=== PATIENT | female | born 1950 | race Caucasian/White ===

== ENCOUNTER 2022-03-29 17:29 | Emergency (ER) | payer MEDICARE, SELFPAY ==
--- NOTE | ~2022-03-29 | CT_ITS ---
EXAMINATION: CT cervical spine wo con DATE: 03/29/2022 18:38 INDICATION: Head injury. TECHNIQUE: Computed tomography (CT) of the cervical spine was performed without intravenous contrast. Automated exposure control and iterative reconstruction technique were employed. The dose-length pro duct was 338.82 mGy-cm. COMPARISON: None FINDINGS: There is mild emphysema. There are nodules in the upper lobes measuring up to 10 mm on the left. There is mild kyphosis of cervical spine. There is 2 mm anterolisthesis of C3 on C4 and C4 on C 5. There is 7 degrees dextrocurvature of cervicothoracic spine. There is a 5 mm sclerotic lesion in C 4 vertebral body, most likely a hemangioma. Vertebral body heights are normal. There is mildly decrea sed disc height at C3-C4 and severely decreased disc height at C5-C6. The following disc levels are s pecifically discussed: C2-C3: There is no uncovertebral joint osteoarthritis. There is mild right and severe left facet join t osteoarthritis. There is mild left neural foraminal stenosis. There is no central canal stenosis. C3-C4: There is mild bilateral uncovertebral joint osteoarthritis. There is mild right and severe lef t facet joint osteoarthritis. There is mild left neural foraminal stenosis. There is mild central can al stenosis. C4-C5: There is mild bilateral uncovertebral joint osteoarthritis. There is mild right and severe lef t facet joint osteoarthritis. There is mild left neural foraminal stenosis. There is no central canal stenosis. C5-C6: There is moderate right and severe left uncovertebral joint osteoarthritis. There is moderate bilateral facet joint osteoarthritis. There is mild right and moderate left neural foraminal stenosis . There is mild central canal stenosis. C6-C7: There is mild bilateral uncovertebral joint osteoarthritis. There is mild bilateral facet join t osteoarthritis. There is mild left neural foraminal stenosis. There is mild central canal stenosis. C7-T1: There is no uncovertebral joint osteoarthritis. There is mild right and severe left facet join t osteoarthritis. There is mild left neural foraminal stenosis. There is no central canal stenosis. IMPRESSION: 1. No fracture. 2. Severe cervical spondylosis. 3. Nodules in the upper lobes measuring up to 10 mm on the left, which may be infection or malignancy . Noncontrast chest CT is recommended. 4. Mild emphysema. Reviewed, dictated and finalized at location A. CTOR AND PROFESSOR IMPRESSION: 1. No fracture. 2. Severe cervical spondylosis. 3. Nodules in the upper lobes measuring up to 10 mm on the left, which may be i nfection or malignancy. Noncontrast chest CT is recommended. 4. Mild emphysema.
--- NOTE | ~2022-03-29 | XR_ITS ---
EXAMINATION: XR shoulder RT min 2V DATE: 03/29/2022 22:35 INDICATION: Right shoulder injury. TECHNIQUE: 4 views of right shoulder were obtained. COMPARISON: None. FINDINGS: Bone alignment is normal. No fracture. There is mild osteoarthritis of glenohumeral joint a nd severe osteoarthritis of acromioclavicular joint. IMPRESSION: 1. Polyarticular osteoarthritis. Reviewed, dictated and finalized at location A. CTION MOLDER
--- NOTE | ~2022-03-29 | XR_ITS ---
EXAMINATION: XR thoracic spine 3V DATE: 03/29/2022 21:08 INDICATION: Back pain. TECHNIQUE: 3 views of thoracic spine were obtained. COMPARISON: None. FINDINGS: There is 26 degrees levoscoliosis of upper thoracic spine. There is 12 degrees dextroscolio sis of lower thoracic spine. There is mild chronic anterior wedging of multiple midthoracic vertebral bodies. There is mild to moderately decreased disc height at multiple levels, worst in mid thoracic spine. There is severely decreased disc height at T8-T9. IMPRESSION: 1. Severe thoracic spondylosis. 2. Scoliosis. Reviewed, dictated and finalized at location A. GER STORAGE
--- NOTE | ~2022-03-29 | XR_ITS ---
EXAMINATION: XR sacrum coccyx min 2V DATE: 03/29/2022 21:07 INDICATION: Sacral pain. Fall. TECHNIQUE: 3 views of the sacrum and coccyx were obtained. COMPARISON: None. FINDINGS: Bone alignment is normal. No acute fracture. There are healing/healed fractures of left sup erior and inferior pubic rami with callus formation. There is severe lumbar spondylosis. There is mil d osteoarthritis of the sacroiliac joints. There is mild right hip osteoarthritis and moderate left h ip osteoarthritis. IMPRESSION: 1. No acute fracture. Reviewed, dictated and finalized at location A. DUMPER IMPRESSION: 1. No acute fracture.
--- NOTE | ~2022-03-29 | CT_ITS ---
EXAMINATION: CT brain wo con DATE: 03/29/2022 18:35 INDICATION: Head injury. TECHNIQUE: Computed tomography (CT) of the head was performed without intravenous contrast. The mA wa s adjusted according to patient size. Iterative reconstruction technique was employed. The dose-lengt h product was 605.33 mGy-cm. COMPARISON: None FINDINGS: There are scattered areas of low attenuation in the cerebral white matter. There is no intr acranial hemorrhage, acute infarction, or abnormal intracranial mass lesion. The ventricles are adrienne l in size. The paranasal sinuses are clear. The mastoid air cells are normal. There are likely change s of ocular lens replacement surgeries. There are dystrophic calcifications in left ocular globe. IMPRESSION: 1. Mild nonspecific cerebral white matter disease, which likely represents chronic small vessel ische dee disease. Reviewed, dictated and finalized at location A. TED CIRCUIT BOARDS INSPECTOR IMPRESSION: 1. Mild nonspecific cerebral white matter disease, which likely represents log sawyer alpa small vessel ischemic disease.
--- NOTE | ~2022-03-29 | XR_ITS ---
EXAMINATION: XR lumbar spine 2-3V DATE: 03/29/2022 21:06 INDICATION: Low back pain. Fall. TECHNIQUE: 3 views of lumbar spine were obtained. COMPARISON: None. FINDINGS: There is 4 degrees dextrocurvature of lumbar spine. There is 3 mm anterolisthesis of L4 on L5. Vertebral body heights are normal. There is mildly decreased disc height at L3-L4 and severely de creased disc height at L4-L5 and L5-S1. There is multilevel facet joint osteoarthritis, severe in low er lumbar spine. IMPRESSION: 1. Severe lower lumbar spondylosis. Reviewed, dictated and finalized at location A. E CARPENTER HELPER
[2022-03-29 17:29] VITALS: BP 140/90; PULSE 85; RESP 18; TEMP 36.6; O2SAT 98
[2022-03-29 19:06] VITALS: BP 130/85; PULSE 95; RESP 18; O2SAT 95
--- NOTE | 2022-03-29 19:28 | PC.NURSE ---
Dr. Schroeder notified c-spine scan has come back negative. Asked if okay to remove c-collar. Dr. Schroeder states pt needs to be evaluated by provider before c-collar removal. Pt updated.
--- NOTE | 2022-03-29 19:42 | ED.FALL ---
HPI - Fall General Chief Complaint: Fall Stated Complaint: Fall, head injury Time Seen by Provider: 03/29/22 19:35 Source: patient and EMS Mode of arrival: EMS Limitations: no limitations History of Present Illness HPI Narrative: Patient is 71 years old white female [facility]. Patient reports a history of recurrent fall for a while. Was seen by many physicians with a lot of blood work-up, imaging including CAT scan and MRI without specific diagnosis. Last fall was 1 week ago. Patient scheduled to see a new neurologist in 2 days. Today patient tripped and fell backward hitting a cabinet with her head, no loss of consciousness when EMT arrived the patient was walking around the dining finn. Patient on anticoagulant medication, patient arrived with c-collar in place, patient has bruises all over her upper body. Related Data Allergies Allergy/AdvReac Type Severity Reaction Status Date / Time adhesive Allergy Unknown PEELS MY Verified 01/03/17 08:26 SKIN OFF Sulfa (Sulfonamide Allergy Unknown HIVES Verified 01/03/17 08:26 Antibiotics) HYDROCODONE BIT Allergy Unknown Unknown Uncoded 01/03/17 08:26 Review of Systems Review of Systems: All systems reviewed & are unremarkable except as noted in HPI and below Exam Narrative: General appearance: Well-developed, well-nourished Skin: Normal color, bruises on the right scapula, arms and legs. Head: Normocephalic, nontraumatic Eyes: Clear conjunctiva ENT: Oropharynx normal, ears normal, nose normal Neck: C-collar in place Chest and respiratory: Airway patent, no respiratory distress, no accessory muscle use Heart: Regular rate/rhythm Abdomen: Soft, nontender, no organomegaly, quiet bowel sounds Vascular: Normal peripheral pulses, normal capillary refill. Musculoskeletal: Slight limited range of motion of extremities otherwise no deformity, Neurologic: Alert and oriented ?3, SHIP PILOT is normal as tested, no gross motor deficit Course Vital Signs Vital signs: Vital Signs Temperature 36.6 C 03/29/22 17:29 Pulse Rate 85 03/29/22 17:29 Respiratory Rate 18 03/29/22 17:29 Blood Pressure 140/90 03/29/22 17:29 Pulse Oximetry 98 03/29/22 17:29 Oxygen Delivery Room Air 03/29/22 17:29 Temperature 36.6 C 03/29/22 17:29 Pulse Rate 92 03/29/22 22:49 Respiratory Rate 18 03/29/22 22:49 Blood Pressure 136/74 03/29/22 22:49 Pulse Oximetry 100 03/29/22 22:49 Oxygen Delivery Room Air 03/29/22 17:29 MDM - Fall MDM Narrative Medical decision making narrative: Patient presents with history of multiple falls, had another 1 today, no loss of consciousness, physical examination showed diffuse tenderness along the back, right shoulder, head and neck, CT head and cervical spine showed no acute abnormality X-ray of the thoracic spine, lumbar spine, coccyx and the right shoulder showed no acute abnormalities.. Patient been seen numerous of time by different physician for disequilibrium without a specific diagnosis And is scheduled to see a neurologist in 2 days. the pt was discharged to home.the pt,s condition upon discharge was fair,education was provided to the pt in reference to the final impression,discharge study results,treatment,prognosis and need for follow up . Imaging Data My impression: Impressions Head CT 03/29/22 18:37 IMPRESSION: 1. Mild nonspecific cerebral white matter disease, which likely represents chronic small vessel ischemic disease. Cervical Spine CT 03/29/22 18:49 IMPRESSION: 1. No fracture. 2. Severe cervical spondylosis. 3. Nodules in the upper lobes measuring up to 10 mm on the left, which may be infection or
--- NOTE | 2022-03-29 22:39 | PC.NURSE ---
[facility] does not provide transportation from ER. Called pt's son Shay and he is going to call back.
[2022-03-29 22:49] VITALS: BP 136/74; PULSE 92; RESP 18; O2SAT 100
== END 2022-03-29 23:08 ==
PROVIDERS: Emergency Provider Emergency Medicine; PCP Family Medicine
DX: S09.90XA Unspecified injury of head, initial encounter (principal); S49.91XA Unspecified injury of right shoulder and upper arm, initial encounter; S39.92XA Unspecified injury of lower back, initial encounter; S29.9XXA Unspecified injury of thorax, initial encounter; R90.82 White matter disease, unspecified; J43.9 Emphysema, unspecified; M19.011 Primary osteoarthritis, right shoulder; M47.812 Spondylosis without myelopathy or radiculopathy, cervical region; M47.814 Spondylosis without myelopathy or radiculopathy, thoracic region; M41.9 Scoliosis, unspecified; R91.8 Other nonspecific abnormal finding of lung field; W01.198A Fall on same level from slipping, tripping and stumbling with subsequent striking against other object, initial encounter; R29.6 Repeated falls
CPT/HCPCS: 70450; 72072; 72100; 72125; 72220; 73030; 99284

== ENCOUNTER 2022-04-08 07:16 | Emergency (ER) | payer MEDICARE, SELFPAY ==
[2022-04-08] VITALS (22 sets, daily range): BP systolic 130–153; BP diastolic 81–102; PULSE 85–112; RESP 11–22; TEMP 36.4–36.6; O2SAT 20–100
--- NOTE | ~2022-04-08 | CT_ITS ---
Non-contrast Head CT History: Headache COMPARISON: 03/29/2022 Technique: Axial non-contrast imaging of the brain was performed. Dose reduction technique was used on this scan by utilizing automated exposure control and iterative reconstruction technique. The dose -length product (DLP) was 529.67 mGy-cm. Findings: There is no evidence of intracranial hemorrhage, mass lesion, or acute infarct. Brain par enchyma appears normal. The ventricles and subarachnoid spaces are normal in size. The calvarium ap pears normal. The visualized paranasal sinuses and mastoid air cells are clear. Impression: No significant abnormality seen. Reviewed, dictated and finalized at location . OR MAKER Impression: No significant abnormality seen.
--- NOTE | ~2022-04-08 | US_ITS ---
Limited Abdominal Sonogram: Real-time sonographic imaging of the right upper quadrant was performed. Clinical History: Epigastric pain, cholelithiasis Findings: The liver appears normal with no evidence of mass lesion or bile duct dilatation. Main por mickie vein demonstrates normal direction of flow. The gallbladder is well distended, and and contains s mall amount of sludge. No definite gallstone or gallbladder wall thickening. The common bile duct tushar sures 6 mm. The visualized pancreas, aorta, and IVC are unremarkable. Impression: Small amount of gallbladder sludge. Reviewed, dictated and finalized at location M. CH ENGINE OPTIMIZATION STRATEGIST Impression: Small amount of gallbladder sludge.
--- NOTE | ~2022-04-08 | CT_ITS ---
EXAMINATION: CT abdomen pelvis w con DATE: 04/08/2022 09:01 INDICATION: Upper abdominal pain TECHNIQUE: Computed tomography (CT) of the abdomen and pelvis was performed with 100 cc Omnipaque 350 intravenous contrast. The dose-length product was 356.31 mGy-cm. Automated exposure control and iter ative reconstruction technique were employed. COMPARISON: None. FINDINGS: There is dependent atelectasis. Cardiomegaly. No significant pleural or pericardial effusio n. Fatty infiltration of the liver. The spleen, pancreas, adrenal glands are unremarkable. There are bilateral renal cysts, largest in the right kidney measuring 3 cm. There is left renal cortical thinn ing/scarring. There is gallbladder distention with gallstones. No biliary dilatation. No free air or free fluid. There is atherosclerosis without aneurysm. No lymphadenopathy. There is a healed/healing left inferior pubic ramus fracture. There is osteoarthritis of the hips. Moderate lumbar spondylosis with grade 1 degenerative spondylolisthesis at L4-5. IMPRESSION: 1. Gallbladder distention with gallstones. 2: Healed/healing left inferior pubic ramus fracture. Reviewed, dictated and finalized at location L. SPOTTER
--- NOTE | 2022-04-08 07:22 | ECG_ITS ---
Measurements Intervals [place] Rate: 93 P: DC: 0 QRS: 93 QRSD: 82 T: 0 QT: 278 QTc: 347 Interpretive Statements ATRIAL FIBRILLATION NONSPECIFIC ST & T-WAVE ABNORMALITY- ANT/INF LEADS BASELINE ARTIFACT- I, II, III, AVR, AVL, V1-V3 ABNORMAL ECG NO PREVIOUS ECG AVAILABLE FOR COMPARISON Electronically Signed On 04-08-2022 7:50:31 TRACK GREASER by Shaquille Amin D.O.
--- NOTE | 2022-04-08 07:27 | PC.NURSE ---
Patient states that she has Afib, but is too sick to remember her medical hx at the moment. Paperwork from [employer] did not have any medical history on the patient. 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
--- NOTE | 2022-04-08 07:48 | PC.NURSE ---
Patient was presenting normal sinus rhythm when initially put on the monitor. Now patient is presenting on with Afib at 95-100 beats per minute.
[2022-04-08 08:06] LABS: Alanine Aminotransferase 19 U/L (6-35); Albumin Level 4.2 g/dL (3.5-5.1); Alkaline Phosphatase 117 U/L (38-126); Anion Gap 7 mmol/L (8-16); Aspartate Amino Transferase 28 U/L (14-36); Basophils Absolute Auto 0.1 K/mm3 (0.0-0.1); Basophils Percent Auto 0.7 % (0.2-1.2); Bilirubin,Total 0.7 mg/dL (0.2-1.3); Blood Urea Nitrogen 12 mg/dL (7-17); Calcium 9.5 mg/dL (8.4-10.2); Carbon Dioxide 25 mmol/L (22-30); Chloride 107 mmol/L (98-107); Eosinophils Absolute Auto 0.2 K/mm3 (0-0.3); Eosinophils Percent Auto 1.6 % (0-4.4); Estimated CRCL calculation 55 ml/min; Estimated Glomerular Filt Rate > 60; Glucose 116 mg/dL (65-110); Hematocrit 42.9 % (37.0-47.0); Hemoglobin 13.8 g/dL (12.0-15.0); Immature Granulocyte Absolute 0.05 K/mm3 (0.00-0.031); Immature Granulocyte Percent A 0.5 % (0-0.5); Lipase 156 U/L (23-300); Lymphocytes Absolute Auto 0.64 K/mm3 (0.9-3.2); Mean Corpuscular HGB Conc 32.2 g/dl (32-36); Mean Corpuscular Hemoglobin 31.4 pg (26-34); Mean Corpuscular Volume 97.7 fl (80-100); Mean Platelet Volume 9.4 fl (7.4-10.4); Monocytes Absolute Auto 0.6 K/mm3 (0.1-0.6); Monocytes Percent Auto 6.5 % (2.6-8.5); Neutrophils Absolute Auto 7.7 K/mm3 (1.3-6.7); Neutrophils Percent Auto 83.7 % (45.5-73.1); Platelet Count Result 481 k/mm3 (150-375); Potassium 3.8 mmol/L (3.4-5.0); Red Blood Count 4.39 M/mm3 (4.2-5.4); Red Cell Distribution Width 13.2 % (11.5-14.5); Sodium 139 mmol/L (137-145); White Blood Count 9.2 K/mm3 (4.5-10.0)
[2022-04-08] MEDS: ONDANSETRON INJ 4 MG/2 ML VIAL IV PUSH (08:27)
[2022-04-08] MEDS: HYDROmorphone HCL INJ (*CRX) 1 MG/ML SYR 0.5 MG IV PUSH (08:29)
[2022-04-08] MEDS: PANTOPRAZOLE SODIUM IV 40 MG VIAL IV PUSH (08:32)
--- NOTE | 2022-04-08 08:36 | ED.GENADULT ---
HPI - General Adult General Chief complaint: Abdominal Pain Stated complaint: Abd pain since 2. from levels Time Seen by Provider: 04/08/22 07:23 History of Present Illness HPI narrative: 71-year-old female presenting to the emergency department for evaluation of epigastric pain, headache and nausea. Patient states symptoms started on Tuesday and have persisted. Patient denies any radiation of the pain to her neck or back. Patient reports decreased p.o. intake. Patient states she does have a prior history of an appendectomy but denies any prior history of gallbladder disease. Patient denies any chest pain or shortness of breath with this. Patient states she has not been running any fevers. Related Data Allergies Allergy/AdvReac Type Severity Reaction Status Date / Time adhesive Allergy Unknown PEELS MY Verified 01/03/17 08:26 SKIN OFF Sulfa (Sulfonamide Allergy Unknown HIVES Verified 01/03/17 08:26 Antibiotics) HYDROCODONE BIT Allergy Unknown Unknown Uncoded 01/03/17 08:26 Review of Systems Review of Systems: CONSTITUTIONAL: Denies fever, chills, or sweats. EYES: Denies visual changes, redness, or discharge. ENT: Denies rhinorrhea, congestion, sore throat, or otalgia. CARDIOVASCULAR: Denies chest pain, palpitations, or edema. RESPIRATORY: Denies cough or dyspnea. GASTROINTESTINAL: See HPI GENITOURINARY: Denies dysuria or hematuria. SKIN: Denies rash or itching. MUSCULOSKELETAL: Denies back pain, joint pain, or myalgia. NEUROLOGIC: Denies headache, numbness, or weakness. Exam Narrative: APPEARANCE: Well appearing, no pain, no distress, well-nourished. HEAD: normocephalic, atraumatic. EYES: PERRLA/EOMI, conjunctivae clear. NOSE: Normal no drainage NECK: Supple. No adenopathy, no masses. RESPIRATORY: Airway patent, respirations nonlabored. Clear to auscultation bilaterally, no rales, rhonchi, wheezing. CARDIOVASCULAR: Regular rate and rhythm without murmurs rubs or gallops. ABDOMINAL: Soft, nondistended, normal bowel sounds, epigastric tenderness to palpation MUSCULOSKELETAL: Moves all extremities. Strength/ROM intact, No edema, No calf tenderness. NEURO: Alert. Cranial nerves II through XII intact. Grossly intact SKIN: Warm, dry. Normal Color Course Course Emergency Course: 71-year-old female with nausea and epigastric pain. Patient was treated with IV fluids, IV Zofran and and IV pain medications. Patient also have a CT abdomen pelvis to help evaluate for pancreatitis, colitis, gastritis, esophagitis, diverticulitis. 10:[address] scan showed gallbladder distention with gallstones. Ultrasound was ordered to evaluate for acute cholecystitis. Patient was treated with Protonix and GI cocktail. Patient was still complaining of headache after Tylenol and IV fluids. CT brain was ordered due to the narrow/worsening headache. 11:[address] was negative. Patient did have a head injury a few weeks ago and had negative imaging at that point. No acute changes. Patient describes having some chills but denies any fever. Patient was afebrile here with no leukocytosis. Patient's electrolytes and transaminases were within normal limits. No elevation of lipase. Patient's UA showed no evidence of urinary tract infection. Reevaluation patient states she does feel improved. Patient denies any headache or epigastric pain at this time. Patient may be having postconcussive headache. Patient does describe chills but no evidence significant infection or need for antibiotics with identified. Patient may have an underlying viral illness. Patient states symptoms were improved with a GI cocktail. Patient will be advised to take omeprazole for 14 days, Maalox intermittently as needed and to have close follow-up with GI. All questions concerns were addressed and patient was comfortable to plan for discharge and close follow-up. Vital Signs Vital signs: Vital Signs Temperature 97.6 F 04/08/22 07:18 Pulse Rate 10
--- NOTE | 2022-04-08 08:57 | PC.NURSE ---
Patient received medication and began dropping down to upper 80s for SPO2. Notified Dr. Lin and put patient on nasal cannula at 2L/min.
--- NOTE | 2022-04-08 09:21 | PC.NURSE ---
Nurse and tech assisted patient to wheelchair to go to bathroom. Patient was very shaky, but maintained balance with minimal assistance.
--- NOTE | 2022-04-08 09:34 | PC.NURSE ---
Patient stated that medication took most of her pain away, but now her pain is coming back specifically her headache. Notified Dr. Lin.
[2022-04-08 09:49] LABS: Appearance Urine Clear (Clear); Bacteria Urine None Seen /hpf; Bilirubin Urine Negative (Negative); Color Urine Yellow (Yellow); Glucose Urine UA Negative (Negative); Ketones Urine Trace mg/dL (Negative); Leukocyte Esterase Ur Negative LEU/UL (Negative); Nitrate Urine Negative (Negative); Non Pathogenic Casts 0-2; Protein Urine Trace mg/dL (Negative); Squamous Epithelial Cell Urine None seen /hpf (Few); Urobilinogen Urine 0.2 mg/dL (<2.0); WBC Urine 0-5 /hpf; pH Urine 5.5 (5.0-9.0)
[2022-04-08 09:57] LABS: Specific Grav Ur 1.067 (1.001-1.035)
[2022-04-08 09:58] LABS: Add Urine Microscopic? YES
[2022-04-08] MEDS: BELLADONNA ALK/PHENOB ELIX 10 ML, MAG HYDROX/ALUMINUM HYD/SIMETH 30 ML, LIDOCAINE HCL 2... PO (10:30)
--- NOTE | 2022-04-08 11:56 | PC.NURSE ---
Called [facility] for a shuttle and they will send someone in 15-20 minutes to pickup the patient.
== END 2022-04-08 12:17 | disposition home or self-care (01) ==
PROVIDERS: Emergency Provider Emergency Medicine; PCP Family Medicine
DX: R51.9 Headache, unspecified (principal); R10.13 Epigastric pain; K80.20 Calculus of gallbladder without cholecystitis without obstruction; I48.91 Unspecified atrial fibrillation; R94.31 Abnormal electrocardiogram [ECG] [EKG]
CPT/HCPCS: 36415; 70450; 74177; 76705; 80053; 81001; 83690; 85025; 93005; 96365; 96375; 99284; A9270; C9113; J0131; J1170; J2405; Q9967

== ENCOUNTER 2022-05-04 09:10 | Outpatient (CLI) | payer MEDICARE, SELFPAY ==
--- NOTE | ~2022-05-04 | NM_ITS ---
EXAMINATION: NM hepatobiliary wo pharm DATE: 05/04/2022 11:38 INDICATION: Epigastric abdominal pain. Nausea. COMPARISON: CT abdomen and pelvis 04/08/2022 TECHNIQUE: 5.1 mCi Tc-99m mebrofenin (Choletec) was administered intravenously. Scintigraphic images of the abdomen were obtained for one hour. Then, the patient drank 8 oz Ensure, and imaging was cont inued for 60 minutes. FINDINGS: There is normal clearance of radiotracer from the blood pool. There is homogeneous tracer u ptake by the liver. Activity progresses to the bowel and gallbladder. Gallbladder ejection fraction (GBEF) was 98%. Note that with this technique, normal GBEF >= 33%. IMPRESSION: 1. Normal hepatobiliary scintigraphy. Reviewed, dictated and finalized at location A.
== END 2022-05-04 09:11 | disposition home or self-care (01) ==
PROVIDERS: PCP Family Medicine; Visit Provider Nurse Practitioner Family
DX: R10.13 Epigastric pain (principal)
CPT/HCPCS: 78226; A9537

== ENCOUNTER 2022-05-27 00:41 | Day surgery (SDC) | payer MEDICARE, SELFPAY ==
[2022-05-19 13:58] VITALS: BMI 22.6
--- NOTE | 2022-05-26 16:39 | PM.HPGS ---
History of Present Illness History of Present Illness Consent: Risks, benefits, and alternatives have been discussed and questions answered. Patient agrees to proceed with procedure. Chief complaint: epigastric pain, nausea Narrative: Ladi Hammonds is a 71 year old female who's symptoms started in March after she moved in to [place].? epigastric pain is constant in nature with no radiation.? She reports associated nausea but no vomiting. ? Epigastric pain does tend to be worse after eating fried or fatty foods. Gallbladder distention with gallstones was noted on CT scan in ER but no biliary dilation or elevated LFTs. Follow-up abdominal ultrasound revealed a small amount of gallbladder sludge but no definite gallstones or gallbladder wall thickening.? She denies any right upper quadrant pain or pain radiating to her back of shoulder blades. ? she was discharged from the ER with instructions to take Mylanta and Imodium (?). She denies any improvement with the mylanta and since starting Imodium she reports constipation.? She denies any previous diarrhea before starting Imodium. Since moving in to [place] she has noticed she has difficulty swallowing or eating. ? States she will have to swallow several times before going down.? Review of Systems Review of Systems: All systems reviewed & are unremarkable except as noted in HPI and below PMFSH Past Medical History Medical History Afib Anxiety CAD (coronary artery disease) CHF (congestive heart failure) Epigastric pain Heart attack Hernia High blood pressure Nausea Osteoarthritis Thyroid activity decreased Surgical History Surgical History H/O: hysterectomy Hx of CABG Social History Social History Smoking packs per day: 1 Smoking cigarettes per day: 20.0 Years smoked: 40 Smoking pack-years: 40.00 Smoking status: Current every day smoker Tobacco type: cigarettes and e-cigarettes/vaping Additional smoking assessment comments: QUIT SMOKING 2018 AND STARTED VAPING # Alcohol intake: current Substance use: never Substance use type: does not use Living arrangements: assisted living Additional living arrangements comments: [facility] [place], [place] Spiritual care concerns: No Meds Home Medications and Allergies Home Medications Medication Instructions Recorded Confirmed Type amiodarone 200 mg tablet 200 mg PO DAILY 04/22/22 05/19/22 History furosemide 40 mg tablet 40 mg PO QAM PRN Edema 04/22/22 05/19/22 History lamotrigine 100 mg tablet 100 mg PO DAILY 04/22/22 05/19/22 History levothyroxine 100 mcg tablet 100 mcg PO DAILY 04/22/22 05/19/22 History (Levo-T) metoprolol succinate 50 mg 50 mg PO DAILY 04/22/22 05/19/22 History tablet,extended release 24 hr multivitamin 1 tablet PO DAILY 04/22/22 05/19/22 History oxycodone-acetaminophen 5 mg-325 1 tablet PO Q6H PRN Pain 04/22/22 05/19/22 History mg tablet potassium chloride 10 mEq 10 meq PO DAILY 04/22/22 05/19/22 History capsule,extended release pregabalin 200 mg capsule 200 mg PO BID 04/22/22 05/19/22 History risperidone 0.5 mg tablet 0.5 mg PO DAILY 04/22/22 05/19/22 History rivaroxaban 20 mg tablet (Xarelto) 20 mg PO DAILY 04/22/22 05/19/22 History simvastatin 20 mg tablet 20 mg PO DAILY 04/22/22 05/19/22 History trazodone 50 mg tablet 50 mg PO QHS 04/22/22 05/19/22 History Vitamin D3 10,000 unit PO DAILY 05/19/22 05/19/22 History aspirin 81 mg tablet,delayed 81 mg PO DAILY 05/19/22 05/19/22 History release (Adult Low Dose Aspirin) calcium 1,200 mg PO BID 05/19/22 05/19/22 History ondansetron 4 mg disintegrating See Rx Instructions .Route 05/19/22 05/19/22 History tablet .COMPLEX PRN Nausea And Vomiting pantoprazole 40 mg tablet,delayed 40 mg PO QAM PRN Acid Reflux 05/19/22 05/19/22 History release venlafaxine 1
[2022-05-27 12:37] VITALS: BP 146/96; PULSE 83; RESP 18; TEMP 36.2; O2SAT 97
[2022-05-27] MEDS: LACTATED RINGERS 1,000 ML 150 ML IV CONT (12:53)
--- NOTE | 2022-05-27 12:57 | WPDANESEPPF ---
Anes - Initial Pre Proc Eval Procedure: Operation Date: 05/27/22 14:00 Proposed Procedures p Esophagogastroduodenoscopy - Yuri Wynn MD Date/Time: 05/27/22 12:57 Surgeon: Yuri Wynn MD Pre Op Diagnosis: epigastric pain, nausea Patient Data Age: 71 Gender: F Height: 1.7 m Weight: 70.9 kg Last Vital Signs Temp 97.1 F L 05/27/22 12:37 Pulse 83 05/27/22 12:37 Resp 18 05/27/22 12:37 BP 146/96 H 05/27/22 12:37 Pulse Ox 97 05/27/22 12:37 O2 Del Method Room Air 05/27/22 12:37 Allergies Allergy/AdvReac Type Severity Reaction Status Date / Time adhesive Allergy Intermediate PEELS MY Verified 05/27/22 12:33 SKIN OFF Home Medications Medication Instructions Recorded Confirmed Type amiodarone 200 mg tablet 200 mg PO DAILY 04/22/22 05/19/22 History furosemide 40 mg tablet 40 mg PO QAM PRN Edema 04/22/22 05/19/22 History lamotrigine 100 mg tablet 100 mg PO DAILY 04/22/22 05/19/22 History levothyroxine 100 mcg tablet 100 mcg PO DAILY 04/22/22 05/19/22 History (Levo-T) metoprolol succinate 50 mg 50 mg PO DAILY 04/22/22 05/19/22 History tablet,extended release 24 hr multivitamin 1 tablet PO DAILY 04/22/22 05/19/22 History oxycodone-acetaminophen 5 mg-325 1 tablet PO Q6H PRN Pain 04/22/22 05/19/22 History mg tablet potassium chloride 10 mEq 10 meq PO DAILY 04/22/22 05/19/22 History capsule,extended release pregabalin 200 mg capsule 200 mg PO BID 04/22/22 05/19/22 History risperidone 0.5 mg tablet 0.5 mg PO DAILY 04/22/22 05/19/22 History rivaroxaban 20 mg tablet (Xarelto) 20 mg PO DAILY 04/22/22 05/19/22 History simvastatin 20 mg tablet 20 mg PO DAILY 04/22/22 05/19/22 History trazodone 50 mg tablet 50 mg PO QHS 04/22/22 05/19/22 History Vitamin D3 10,000 unit PO DAILY 05/19/22 05/19/22 History aspirin 81 mg tablet,delayed 81 mg PO DAILY 05/19/22 05/19/22 History release (Adult Low Dose Aspirin) calcium 1,200 mg PO BID 05/19/22 05/19/22 History ondansetron 4 mg disintegrating See Rx Instructions .Route 05/19/22 05/19/22 History tablet .COMPLEX PRN Nausea And Vomiting pantoprazole 40 mg tablet,delayed 40 mg PO QAM PRN Acid Reflux 05/19/22 05/19/22 History release venlafaxine 150 mg 150 mg PO DAILY 05/19/22 05/19/22 History capsule,extended release 24 hr Patient hx anesthesia problems: none Family hx anesthesia problems: none Results Review: All pre-operative results and documents have been reviewed as part of the pre-operative evaluation. [facility] Past Medical History Medical History (Updated 04/22/22 @ 16:56 by ELENA LeeN-C) Afib Anxiety CAD (coronary artery disease) CHF (congestive heart failure) Epigastric pain Heart attack Hernia High blood pressure Nausea Osteoarthritis Thyroid activity decreased Surgical History Surgical History (Updated 04/22/22 @ 14:20 by James Rizvi) H/O: hysterectomy Hx of CABG Social History Social History Smoking packs per day: 1 Smoking cigarettes per day: 20.0 Years smoked: 40 Smoking pack-years: 40.00 Smoking status: Current every day smoker Tobacco type: cigarettes and e-cigarettes/vaping Additional smoking assessment comments: QUIT SMOKING 2017 AND STARTED VAPING # Alcohol intake: current Substance use: never Substance use type: does not use Living arrangements: assisted living Additional living arrangements comments: [facility] [place], [place] Spiritual care concerns: No Anes - Eval Final PreProcedure Day of Procedure 05/27/22 12:57 Patient weight: normal Heart: irregular rhythm Lungs: clear to auscultation Airway: Mallampati scale class II Neurological: alert and oriented Last oral intake: >/= 8 hours ASA classification: III Emergent: no Anesthetic plan: proceed Anesthesia type and monitoring: general GIVS and standard monitoring Results Review: All pre-operative results and documents have bee
[2022-05-27 14:24] VITALS: BP 126/82; PULSE 83; RESP 17; O2SAT 97
[2022-05-27 14:34] VITALS: BP 118/73; PULSE 76; RESP 12; O2SAT 96
[2022-05-27 14:44] VITALS: BP 126/86; PULSE 69; RESP 12; O2SAT 95
== END 2022-05-27 14:57 | disposition home or self-care (01) ==
PROVIDERS: PCP Family Medicine; Visit Provider Internal Medicine Gastroenterology
PROC: 0DJ08ZZ Inspection of Upper Intestinal Tract, Via Natural or Artificial Opening Endoscopic (ICD-10-PCS; CPT 43235; principal; 2022-05-27 14:00)
DX: K29.70 Gastritis, unspecified, without bleeding (principal); I48.91 Unspecified atrial fibrillation; I25.10 Atherosclerotic heart disease of native coronary artery without angina pectoris; I11.0 Hypertensive heart disease with heart failure; I50.9 Heart failure, unspecified; I25.2 Old myocardial infarction; F41.9 Anxiety disorder, unspecified; E07.9 Disorder of thyroid, unspecified; Z79.01 Long term (current) use of anticoagulants; Z79.82 Long term (current) use of aspirin; Z95.1 Presence of aortocoronary bypass graft; F17.290 Nicotine dependence, other tobacco product, uncomplicated
CPT/HCPCS: 43239; 88305; J2704; J7120

== ENCOUNTER 2022-06-01 13:24 | Outpatient (CLI) | payer MEDICARE, SELFPAY ==
--- NOTE | ~2022-06-01 | CT_ITS ---
EXAMINATION:CT diagnostic chest w con DATE: 06/01/2022 14:14 INDICATION: Lung nodule. TECHNIQUE: Computed tomography (CT) of the chest was performed with 75 mL Omnipaque 350 intravenous c ontrast. Automated exposure control and iterative reconstruction technique were employed. The dose-le ngth product (DLP) was 157.78 mGy-cm. COMPARISON: CT abdomen and pelvis 04/08/2022, CT cervical spine 03/29/2022 FINDINGS: There is mild scarring at the lung apices. There is mild dependent atelectasis bilaterally. There is a 10 mm nodule in left upper lobe. No pleural effusion. Cardiomegaly is noted. There are co ronary artery calcifications. No pericardial effusion. There are cysts in right kidney measuring up t o 2.6 cm . There is cortical thinning of the kidneys. Median sternotomy wires are noted. There is mil d chronic anterior wedging of multiple thoracic vertebral bodies. There is thoracic levoscoliosis and severe spondylosis. There is severe cervical spondylosis. There is a benign bone island in T4 verteb ral body. IMPRESSION: 1. 10 mm pulmonary nodule, which may be infection or malignancy, stable from 03/29/2022. Consider PET/ CT or 3-6 month noncontrast low-dose chest CT. Reviewed, dictated and finalized at location A. IMPRESSION: 1. 10 mm pulmonary nodule, which may be infection or malignancy, stable from . Consider PET/CT or 3-6 month noncontrast low-dose chest CT.
[2022-06-01 13:51] LABS: Estimated Glomerular Filt Rate 40
== END 2022-06-01 13:25 | disposition home or self-care (01) ==
PROVIDERS: PCP Family Medicine; Visit Provider Internal Medicine Pulmonary Disease
DX: R91.1 Solitary pulmonary nodule (principal)
CPT/HCPCS: 71260; Q9967

== ENCOUNTER 2022-06-11 10:30 | Outpatient (CLI) | payer MEDICARE, SELFPAY ==
[2022-06-11 11:21] LABS: Anion Gap 5 mmol/L (8-16); Blood Urea Nitrogen 18 mg/dL (7-17); Carbon Dioxide 27 mmol/L (22-30); Chloride 107 mmol/L (98-107); Estimated Glomerular Filt Rate 55; Glucose 91 mg/dL (65-110); Potassium 4.2 mmol/L (3.4-5.0); Sodium 139 mmol/L (137-145)
[2022-06-11 11:27] LABS: Alanine Aminotransferase 25 U/L (6-35); Albumin Level 4.4 g/dL (3.5-5.1); Alkaline Phosphatase 80 U/L (38-126); Amylase 74 U/L (30-110); Aspartate Amino Transferase 30 U/L (14-36); Bilirubin,Total 0.6 mg/dL (0.2-1.3); Lipase 210 U/L (23-300)
== END 2022-06-11 10:31 | disposition home or self-care (01) ==
LOC: ANHSURGERY 10:38
PROVIDERS: Anesthesiology; PCP Nurse Practitioner Family; Visit Provider Surgery
DX: K80.10 Calculus of gallbladder with chronic cholecystitis without obstruction (principal); Z79.899 Other long term (current) drug therapy; Z01.818 Encounter for other preprocedural examination
CPT/HCPCS: 36415; 80048; 80076; 82150; 83690; 86850; 86900; 86901

== ENCOUNTER 2022-06-17 02:04 | Day surgery (SDC) | payer MEDICARE, SELFPAY ==
[2022-06-10 12:36] VITALS: BMI 24.3
--- NOTE | 2022-06-10 12:44 | PC.NURSE ---
PRE-OP INSTRUCTIONS, PLEASE READ CAREFULLY Report to the Outpatient Waiting Room, entrance under the green pavilion located off [facility], at time _1000_ on date _06/17/22_. Planned Procedure Time: _1200_. Time changes happen often and if your time is changed the preop area will call you the afternoon before. - You and your visitor will be asked to self-screen and do not enter if you have any COVID symptoms. - A mask is optional within the hospital at this time. Patients may have clear liquids (water, carbonated beverages, clear teas, apple juice) until 3 hours prior to surgery (0900 AM) with a maximum of 20 ounces. - No food from midnight until time of surgery Take the following medications with a SIP of water the morning of surgery: _AMIODARONE, LAMOTRIGINE, LEVOTHYROXINE, METOPROLOL, PREGABALIN, VENLAFAXINE, PAIN PILL IF NEEDED_ DO NOT STOP ANY OF YOUR OTHER PRESCRIPTION MEDICATIONS PRIOR TO SURGERY ?EXCEPT THE FOLLOWING Medications to discontinue per DR. YUAN - _RIVAROXABAN 2 DAYS PRIOR TO SURGERY, Date to take last dose 06/14/10_ Medications to discontinue per ANESTHESIA - _MULTIVITAMIN 3 DAYS PRIOR TO SURGERY, Date to take last dose 06/13/10_ Please no make-up, nail azerbaijani, hairspray, perfume, deodorant, or body powder the day of surgery. No jewelry (including any body piercings) or valuables the day of surgery, leave them at home. Please take a shower or bath the night before, or the morning of, surgery with an antibacterial soap. Wear comfortable, loose fitting clothing. - Jewelry must be removed prior to entering the operating room. Rings and piercings that are not removed may be cut off. - The hospital will not accept responsibility for valuables. - Please leave all valuables, including medications, at home the day of surgery. If you are going home after surgery, a licensed commercial truck driver must drive you home. - NO public transportation without another adult if you receive anesthesia. - We recommend that an adult stay with you for 24 hours following discharge. - We also recommend that you do not drive, make important decision, drink alcoholic beverages, or take any drugs that were not prescribed by your health care provider for at least 24 hours after your discharge time. Follow any additional instructions given to you from your surgeon. If you or anyone in your household have experienced Covid symptoms in the past week, please notify your surgeon or the nurse liaison at the phone number below for possible testing. Telephone instructions given to _PATIENT_and asked if any additional questions and then verbalized understanding. Patient advised to call surgeon office or pre surgery nurse liaison [phone] if any additional questions.
[2022-06-17] VITALS (12 sets, daily range): BP systolic 125–170; BP diastolic 84–112; PULSE 68–87; RESP 13–16; TEMP 36.7–36.8; O2SAT 90–100
--- NOTE | 2022-06-17 10:25 | WPDHPUPDATE1 ---
History and Physical Update Update Date/Time: 06/17/22 10:25 History and Physical has been reviewed, including an updated exam of the patient. There are NO changes in the patient's condition. Risks, benefits, and alternatives have been discussed and questions answered. Patient agrees to proceed with procedure.
[2022-06-17] MEDS: LACTATED RINGERS 1,000 ML 30 ML IV CONT (10:45)
[2022-06-17] MEDS: ACETAMINOPHEN 500 MG TABLET 1000 MG PO (11:00)
[2022-06-17] MEDS: KETOROLAC 15 MG/ML VIAL (*BKC) IV PUSH (11:00)
--- NOTE | 2022-06-17 11:22 | WPDANESEPPF ---
Anes - Initial Pre Proc Eval Procedure: Operation Date: 06/17/22 12:00 Proposed Procedures p Laparoscopic Cholecystectomy - William Marrero MD Date/Time: 06/17/22 11:22 Surgeon: William Marrero MD Pre Op Diagnosis: chronic cholecystitis with stones Patient Data Age: 71 Gender: F Height: 1.7 m Weight: 70.5 kg Allergies Allergy/AdvReac Type Severity Reaction Status Date / Time adhesive Allergy Intermediate PEELS MY Verified 06/10/22 12:34 SKIN OFF Home Medications Medication Instructions Recorded Confirmed Type amiodarone 200 mg tablet 200 mg PO DAILY 04/22/22 06/10/22 History furosemide 40 mg tablet 40 mg PO QAM PRN Edema 04/22/22 06/10/22 History lamotrigine 100 mg tablet 100 mg PO DAILY 04/22/22 06/10/22 History levothyroxine 100 mcg tablet 100 mcg PO DAILY 04/22/22 06/10/22 History (Levo-T) metoprolol succinate 50 mg 50 mg PO DAILY 04/22/22 06/10/22 History tablet,extended release 24 hr multivitamin 1 tablet PO DAILY 04/22/22 06/10/22 History oxycodone-acetaminophen 5 mg-325 1 tablet PO Q6H PRN Pain 04/22/22 06/10/22 History mg tablet potassium chloride 10 mEq 10 meq PO DAILY 04/22/22 06/10/22 History capsule,extended release pregabalin 200 mg capsule 200 mg PO BID 04/22/22 06/10/22 History risperidone 0.5 mg tablet 0.5 mg PO DAILY 04/22/22 06/10/22 History rivaroxaban 20 mg tablet (Xarelto) 20 mg PO DAILY 04/22/22 06/10/22 History simvastatin 20 mg tablet 20 mg PO DAILY 04/22/22 06/10/22 History trazodone 50 mg tablet 50 mg PO QHS 04/22/22 06/10/22 History Vitamin D3 10,000 unit PO DAILY 05/19/22 06/10/22 History aspirin 81 mg tablet,delayed 81 mg PO DAILY 05/19/22 06/10/22 History release (Adult Low Dose Aspirin) calcium 1,200 mg PO BID 05/19/22 06/10/22 History pantoprazole 40 mg tablet,delayed 40 mg PO QAM PRN Acid Reflux 05/19/22 06/10/22 History release venlafaxine 150 mg 150 mg PO DAILY 05/19/22 06/10/22 History capsule,extended release 24 hr ondansetron 4 mg disintegrating 4 mg PO Q6H PRN Nausea And 06/03/22 06/10/22 Rx tablet Vomiting #15 tabs Patient hx anesthesia problems: none Family hx anesthesia problems: none Results Review: All pre-operative results and documents have been reviewed as part of the pre-operative evaluation. [facility] Past Medical History Medical History (Updated 06/03/22 @ 11:03 by Mariana Orr) Afib Anxiety CAD (coronary artery disease) CHF (congestive heart failure) COPD (chronic obstructive pulmonary disease) Depression Emphysema lung Epigastric pain Heart attack Hernia High blood pressure History of blood clots Kidney stone Nausea Osteoarthritis Thyroid activity decreased Surgical History Surgical History (Updated 06/03/22 @ 11:03 by Mariana Orr) H/O: hysterectomy Hx of CABG Family History Family History Mother Carcinoma of colon Other Carcinoma of colon Social History Social History Smoking packs per day: 1 Smoking cigarettes per day: 20.0 Years smoked: 40 Smoking pack-years: 40.00 Smoking status: Former smoker Tobacco type: cigarettes and e-cigarettes/vaping Additional smoking assessment comments: STATES QUIT SMOKING 2018 AND THEN STARTED VAPING Alcohol intake: current Alcohol use details: RARELY - COUPLE TIMES A YEAR Substance use: never Substance use type: does not use Living arrangements: assisted living Additional living arrangements comments: [facility] [place] Spiritual care concerns: No Anes - Eval Final PreProcedure Day of Procedure 06/17/22 11:22 Patient weight: overweight Heart: regular rate and rhythm Lungs: clear to auscultation Airway: Mallampati scale class III Neurological: alert and oriented Last oral intake: >/= 8 hours ASA classification: III Emergent: no Anesthetic plan: proceed Anesthesia type and monit
[2022-06-17] MEDS: BUPivacaine HCL 0.25% PF 30 ML VIAL 18 ML INFILTRATE (11:56)
[2022-06-17] MEDS: ceFAZolin 2 GM/D5W 50 ML 2 GM/50 ML BAG IVPB (11:56)
--- NOTE | 2022-06-17 13:18 | W.PM.PROC2 ---
Procedure Note - Detailed Date of Procedure 06/17/22 Pre-op Diagnosis chronic cholecystitis with stones Post-op Diagnosis Same Procedure Performed Laparoscopic cholecystectomy Surgeon William Marrero MD Skip Pitman Solo ALBERTO Anesthesia General and Local (0.5% Marcaine with epinephrine) Indications Patient has had episodes of epigastric postprandial abdominal pain and was noted to have gallstones on CT scan with a distended gallbladder. She had an ultrasound of the gallbladder which showed gallbladder sludge, no stones. She had an his hepatobiliary scan which was normal. Her symptoms and imaging findings were very suggestive of chronic cholecystitis with sludge or gallstones. She is taken to surgery now for laparoscopic cholecystectomy. Findings There was chronic inflammation and at least some small gritty pigmented stones. There was no biliary ductal dilatation. There was evidence of fatty liver. The liver was friable and bled easily. There were adhesions to the gallbladder as well. Even though the patient had stopped her Xarelto as instructed, the surgery was considerably more bloody than usual with all dissection area is causing oozing of blood. No additional findings of significance were noted. Description of Procedure The patient was taken to surgery and induced into general anesthesia. The abdomen is prepped and draped. Trocars were placed in the usual fashion using basno optical trocars and a 5 mm camera. Initially the gallbladder was retracted and omental adhesions were freed from the gallbladder. This allowed us to retract the gallbladder anterosuperiorly. Unfortunately the lateral segment of the left lobe of the liver was prominent and protruded into the visual field as we tried to dissect out the cholecystohepatic triangle. A 5th trocar was then placed in the left mid abdomen and through this trocar a blunt tipped instrument was used to retract the lateral segment of the left lobe of the liver. We were then able to dissect the cystic duct and cystic artery. We dissected each of these structures carefully. We also dissected the gallbladder off the liver at its lower 3rd. Critical view was achieved. I then securely clipped and divided the cystic duct and cystic artery. As noted above, every tissue dissected was associated with some bleeding. The bleeding was not severe but much more prominent than usual. Cautery was used for hemostasis. We retracted the gallbladder and then dissected the peritoneal attachments of the gallbladder to the liver. Eventually the gallbladder was completely freed from the liver. Gallbladder was placed in an Endo-Catch bag retrieved through the 10 11 epigastric trocar site. We then replaced the epigastric trocar. We reviewed the gallbladder fossa and right upper quadrant. Irrigation and suction were carried out. Some additional cautery on the gallbladder fossa was carried out. Eventually we suctioned away all the old blood and achieved good hemostasis. There was no evidence of bleeding or bile leakage. I then used the Tray cone and an 0 Vicryl suture. We closed the fascia at the epigastric port with the 0 Vicryl suture and the Tray cone. We evacuated CO2 and removed the trocar sleeves. All skin wounds were closed with subcuticular 4-0 Monocryl skin suture. The wounds were dressed with Exofin surgical adhesive. Patient was awakened and taken to recovery in good condition. Sponge and needle counts were correct x2. Estimated Blood Loss -30 Drains No Packing No Pathology Yes (Gallbladder) Complications No immediate complications Condition Stable Disposition PACU [facility] Billing Surgery - Charge Forward: Surgery Billing (Laparoscopic cholecystectomy)
--- NOTE | 2022-06-17 13:30 | SUR.OPER ---
NOTED AT BOVIE SITE REMOVAL BRUISING AND PETECHIAE AT BOVIE SITE IN SHAPE OF BOVIE PAD. DR YUAN INFORMED. RELAYED TO PACU NURSE AND AWARE. PATIENT SENSITIVE TO ADHESIVE WHICH IS LISTED UNDER ALLERGY. ROOM STAFF ASSESSED AND ADHESIVE SPRAYER.
[2022-06-17] MEDS: fentaNYL CITRATE INJ (*CRX) 100 MCG/2 ML VIAL 25 MCG IV PUSH (14:06)
--- NOTE | 2022-06-17 14:18 | SUR.PHASEI ---
Petechiae/ redness noted to left thigh. Dr. Marrero aware.
[2022-06-17] MEDS: oxyCODONE HCL (*CRX) 5 MG TAB IR PO (14:46)
== END 2022-06-17 16:05 | disposition home or self-care (01) ==
PROVIDERS: PCP Nurse Practitioner Family; Visit Provider Surgery
PROC: 0FT44ZZ Resection of Gallbladder, Percutaneous Endoscopic Approach (ICD-10-PCS; CPT 47562; principal; 2022-06-17 12:00)
DX: K81.1 Chronic cholecystitis (principal); I48.91 Unspecified atrial fibrillation; I25.10 Atherosclerotic heart disease of native coronary artery without angina pectoris; I11.0 Hypertensive heart disease with heart failure; I50.9 Heart failure, unspecified; J43.9 Emphysema, unspecified; I25.2 Old myocardial infarction; F41.9 Anxiety disorder, unspecified; F32.A Depression, unspecified; Z86.718 Personal history of other venous thrombosis and embolism; Z95.1 Presence of aortocoronary bypass graft; F17.290 Nicotine dependence, other tobacco product, uncomplicated; Z79.01 Long term (current) use of anticoagulants; Z79.82 Long term (current) use of aspirin
CPT/HCPCS: 47562; 88304; A9270; C1713; J0330; J0690; J1100; J1170; J1885; J2405; J2704; J2710; J3010; J7120

== ENCOUNTER 2022-06-19 17:47 | Emergency (ER) | payer MEDICARE, SELFPAY ==
[2022-06-19 17:42] VITALS: BP 149/85; PULSE 84; RESP 18; TEMP 37.2; O2SAT 98
--- NOTE | 2022-06-19 18:02 | ECG_ITS ---
Measurements Intervals Rush Rate: 83 P: OK: 0 QRS: 101 QRSD: 101 T: 65 QT: 392 QTc: 461 Interpretive Statements ATRIAL FIBRILLATION RIGHT AXIS DEVIATION NONSPECIFIC ST & T-WAVE ABNORMALITY- DIFFUSE LEADS BASELINE ARTIFACT- I, II, III, AVF ABNORMAL ECG COMPARED TO ECG 04/08/2022 07:28:39 NO SIGNIFICANT CHANGES Electronically Signed On 06-19-2022 21:00:18 CDT by Shaquille Amin D.O.
--- NOTE | 2022-06-19 18:05 | ED.RECABL ---
HPI - Recheck/Abnormal Lab/Rx General Chief Complaint: Recheck/Abnormal Lab/Rx Stated Complaint: HIGH BP Time Seen by Provider: 06/19/22 17:53 History of Present Illness HPI narrative: 71-year-old female presents to the emergency room today for postop pain after having her gallbladder taken out on . She is also having elevated blood pressure. She has not taken anything for pain today. She says that she was only prescribed ibuprofen by her surgeon. But she already has a prescription for oxycodone from her pain management doctor. She has not taken any of the oxycodone since yesterday. She says that she has hot and cold flashes. No fever. Her pain is upper abdomen and radiates a little into her chest. Related Data Home Medications Medication Instructions Recorded Confirmed amiodarone 200 mg tablet 200 mg PO DAILY 04/22/22 06/17/22 furosemide 40 mg tablet 40 mg PO QAM PRN Edema 04/22/22 06/17/22 lamotrigine 100 mg tablet 100 mg PO DAILY 04/22/22 06/17/22 levothyroxine 100 mcg tablet 100 mcg PO DAILY 04/22/22 06/17/22 (Levo-T) metoprolol succinate 50 mg 50 mg PO DAILY 04/22/22 06/17/22 tablet,extended release 24 hr multivitamin 1 tablet PO DAILY 04/22/22 06/17/22 oxycodone-acetaminophen 5 mg-325 1 tablet PO Q6H PRN Pain 04/22/22 06/17/22 mg tablet potassium chloride 10 mEq 10 meq PO DAILY 04/22/22 06/17/22 capsule,extended release pregabalin 200 mg capsule 200 mg PO BID 04/22/22 06/17/22 risperidone 0.5 mg tablet 0.5 mg PO DAILY 04/22/22 06/17/22 rivaroxaban 20 mg tablet (Xarelto) 20 mg PO DAILY 04/22/22 06/17/22 simvastatin 20 mg tablet 20 mg PO DAILY 04/22/22 06/17/22 trazodone 50 mg tablet 50 mg PO QHS 04/22/22 06/17/22 Vitamin D3 10,000 unit PO DAILY 05/19/22 06/17/22 aspirin 81 mg tablet,delayed 81 mg PO DAILY 05/19/22 06/17/22 release (Adult Low Dose Aspirin) calcium 1,200 mg PO BID 05/19/22 06/17/22 pantoprazole 40 mg tablet,delayed 40 mg PO QAM PRN Acid Reflux 05/19/22 06/17/22 release venlafaxine 150 mg 150 mg PO DAILY 05/19/22 06/17/22 capsule,extended release 24 hr Allergies Allergy/AdvReac Type Severity Reaction Status Date / Time adhesive Allergy Intermediate PEELS MY Verified 06/17/22 11:56 SKIN OFF Review of Systems Review of Systems: CONSTITUTIONAL: No fever, reports hot and cold flashes EYES: Denies visual changes, redness, or discharge. ENT: Denies rhinorrhea, congestion, sore throat, or otalgia. CARDIOVASCULAR: Denies chest pain, palpitations, or edema. RESPIRATORY: Denies cough or dyspnea. GASTROINTESTINAL: post op upper abdominal pain, no n/v/d GENITOURINARY: Denies dysuria or hematuria. SKIN: Denies rash or itching. MUSCULOSKELETAL: Denies back pain, joint pain, or myalgia. NEUROLOGIC: Denies headache, numbness, dizziness, or weakness. PSYCHIATRIC: Denies anxiety or depression. [facility] Past Medical History Medical History Afib Anxiety CAD (coronary artery disease) CHF (congestive heart failure) COPD (chronic obstructive pulmonary disease) Depression Emphysema lung Epigastric pain Heart attack Hernia High blood pressure History of blood clots Kidney stone Nausea Osteoarthritis Thyroid activity decreased Surgical History Surgical History H/O: hysterectomy Hx of CABG Family History Family History Mother Carcinoma of colon Other Carcinoma of colon Social History Social History Smoking packs per day: 1 Smoking cigarettes per day: 20.0 Years smoked: 40 Smoking pack-years: 40.00 Smoking status: Former smoker Tobacco type: cigarettes and e-cigarettes/vaping Additional smoking assessment comments: STATES QUIT SMOKING 2018 AND THEN STARTED VAPING Alcohol intake: current Alcohol use details: RARELY - COUPLE
[2022-06-19] MEDS: MORPHINE SULFATE (*CRX) 4 MG/ML INJ IV PUSH (18:35)
[2022-06-19] MEDS: ONDANSETRON INJ 4 MG/2 ML VIAL IV PUSH (18:35)
[2022-06-19 18:52] LABS: Basophils Percent Auto 0.5 % (0.2-1.2); Eosinophils Absolute Auto 0.1 K/mm3 (0-0.3); Hematocrit 40.5 % (37.0-47.0); Hemoglobin 12.8 g/dL (12.0-15.0); Immature Granulocyte Absolute 0.02 K/mm3 (0.00-0.031); Immature Granulocyte Percent A 0.2 % (0-0.5); Lymphocytes Absolute Auto 1.01 K/mm3 (0.9-3.2); Lymphocytes Percent Auto 12.3 % (18.3-44.2); Mean Corpuscular HGB Conc 31.6 g/dl (32-36); Mean Corpuscular Hemoglobin 29.5 pg (26-34); Mean Corpuscular Volume 93.3 fl (80-100); Mean Platelet Volume 9.9 fl (7.4-10.4); Monocytes Absolute Auto 0.9 K/mm3 (0.1-0.6); Monocytes Percent Auto 10.6 % (2.6-8.5); Neutrophils Absolute Auto 6.2 K/mm3 (1.3-6.7); Neutrophils Percent Auto 75.4 % (45.5-73.1); Platelet Count Result 225 k/mm3 (150-375); Red Blood Count 4.34 M/mm3 (4.2-5.4); Red Cell Distribution Width 14.6 % (11.5-14.5); White Blood Count 8.2 K/mm3 (4.5-10.0)
[2022-06-19 19:10] LABS: Alanine Aminotransferase 57 U/L (6-35); Albumin Level 3.7 g/dL (3.5-5.1); Alkaline Phosphatase 63 U/L (38-126); Anion Gap 4 mmol/L (8-16); Aspartate Amino Transferase 55 U/L (14-36); Bilirubin,Total 0.9 mg/dL (0.2-1.3); Blood Urea Nitrogen 13 mg/dL (7-17); Calcium 8.6 mg/dL (8.4-10.2); Carbon Dioxide 31 mmol/L (22-30); Chloride 104 mmol/L (98-107); Estimated CRCL calculation 55 ml/min; Estimated Glomerular Filt Rate > 60; Glucose 94 mg/dL (65-110); Potassium 3.6 mmol/L (3.4-5.0); Sodium 139 mmol/L (137-145)
[2022-06-19 19:21] LABS: Troponin I < 0.012 ng/mL (0.000-0.034)
[2022-06-19 20:36] VITALS: BP 150/98; PULSE 82; RESP 16; O2SAT 96
== END 2022-06-19 21:00 ==
PROVIDERS: Emergency Provider Nurse Practitioner Family; PCP Nurse Practitioner Family
DX: G89.18 Other acute postprocedural pain (principal); R10.10 Upper abdominal pain, unspecified; I48.91 Unspecified atrial fibrillation; I25.10 Atherosclerotic heart disease of native coronary artery without angina pectoris; I50.9 Heart failure, unspecified; I11.0 Hypertensive heart disease with heart failure; J43.9 Emphysema, unspecified; Z87.442 Personal history of urinary calculi; I25.2 Old myocardial infarction; M19.90 Unspecified osteoarthritis, unspecified site; F41.9 Anxiety disorder, unspecified; F32.A Depression, unspecified; F17.290 Nicotine dependence, other tobacco product, uncomplicated; Z95.1 Presence of aortocoronary bypass graft; Z90.710 Acquired absence of both cervix and uterus; Z90.49 Acquired absence of other specified parts of digestive tract; Z79.01 Long term (current) use of anticoagulants; R94.31 Abnormal electrocardiogram [ECG] [EKG]
CPT/HCPCS: 36415; 80053; 84484; 85025; 93005; 96374; 96375; 99284; J2270; J2405

== ENCOUNTER → 2022-11-01 12:47 | Outpatient (CLI) | payer MEDICARE, SELFPAY ==
--- NOTE | ~2022-11-01 | MM_ITS ---
EXAMINATION: MM screening anum BI w hima HISTORY: Screening mammogram TECHNIQUE: Craniocaudal and mediolateral oblique 3-D tomosynthesis images were obtained and synthetic 2-D images were generated. CAD analysis was submitted and interpreted. COMPARISON: No prior mammogram is available for comparison at this institution. BREAST PARENCHYMAL COMPOSITION: The breasts are almost entirely fatty. FINDINGS: There is no evidence of suspicious mass, calcification, or architectural distortion to sugg est malignancy in either breast. IMPRESSION: 1. No mammographic evidence of malignancy. 2. Recommend routine screening mammography in one year. BI-RADS Category 1: Negative Reviewed, dictated and finalized at location A.
== END ==
PROVIDERS: PCP Nurse Practitioner Family; Visit Provider Nurse Practitioner Family
DX: Z12.31 Encounter for screening mammogram for malignant neoplasm of breast (principal)
CPT/HCPCS: 77063; 77067

== ENCOUNTER → 2023-01-14 10:11 | Outpatient (CLI) | payer MEDICARE, SELFPAY ==
--- NOTE | ~2023-01-14 | DEXA_ITS ---
Bone Density Report Name: JOHN SOL Age: 72 Sex: Female Ethnicity: White Date of : 1950 Indication: osteopenia; height loss; asthma or emphysema; hysterectomy; Referring Provider: VALENTINE JORDAN [facility] Study: Bone densitometry was performed. Exam Date: January 14, 2023 Accession number: [id number] Bone Density: Region BMD T-score Z-score Classification AP Spine (L1-L4) 0.892 -1.4 0.8 Osteopenia Femoral Neck (Left) 0.632 -2.0 -0.1 Osteopenia Total Hip (Left) 0.790 -1.2 0.3 Osteopenia Femoral Neck (Right) 0.545 -2.7 -0.9 Osteoporosis Total Hip (Right) 0.720 -1.8 -0.2 Osteopenia Total Hip Mean 0.755 -1.5 0.1 Osteopenia World Health Organization criteria for BMD impression classify patients as: Normal (T-score at or above -1.0), Osteopenia (T-score between -1.0 and -2.5), or Osteoporosis (T-score at or below -2.5). 10-year Fracture Risk: FRAX not reported because: Some T-score for Spine Total or Hip Total or Femoral Neck at or below -2.5 Previous Exams: Region Exam Age BMD T-score BMD Change BMD Change Date g/cm2 vs Baseline vs Previous AP Spine(L1-L4) 01/14/2023 72 0.892 -1.4 0.041* 0.041* 04/05/2007 56 0.851 -1.8 Total Hip(Left) 01/14/2023 72 0.790 -1.2 0.044* 0.044* 04/05/2007 56 0.747 -1.6 Total Hip(Right) 01/14/2023 72 0.720 -1.8 -0.018 -0.018 04/05/2007 56 0.738 -1.7 *Denotes significance at 95% confidence level, LSC for AP Spine = 0.022 g/cm2, LSC for Total Hip = 0.027 g/cm2 Clinical Information Provided by Patient: Smokes Has used the following medications: Vitamin D, Calcium, MTV, LEVOTHYROXINE Has the following medical conditions: Asthma or Emphysema, Hysterectomy Patient maximum height was 67.0 Menopause Age: 39 No regular weight bearing exercise Does not regularly consume dairy products Drinks caffeinated beverages Onset of menses at age 17 Number of children 2 Impression: The patient has osteoporosis, based on the Right Femoral Neck T-score. The patient has risk factors, including: smoking. No significant bone loss was observed. Discussion: INCREASED RISK OF FRACTURE. BONE DENSITY IS UNDESIRABLY LOW AT ONE OR MORE SKELETAL SITES, CONSISTENT WITH POSTMENOPAUSAL OSTEOPOROSIS. This patient's lowest T-score meets the World Health Organization's (WHO) criteria for osteoporosis at one or more sites (T-score -2.5 or below). In untreated patien
== END ==
PROVIDERS: PCP Nurse Practitioner Family; Visit Provider Nurse Practitioner Family
DX: M81.0 Age-related osteoporosis without current pathological fracture (principal); M85.88 Other specified disorders of bone density and structure, other site; M85.852 Other specified disorders of bone density and structure, left thigh; M85.851 Other specified disorders of bone density and structure, right thigh
CPT/HCPCS: 77080

== ENCOUNTER 2023-01-20 16:52 | Emergency (ER) | payer MEDICARE, SELFPAY ==
[2023-01-20 17:05] VITALS: BP 140/89; PULSE 78; RESP 18; TEMP 36.7; O2SAT 97
--- NOTE | 2023-01-20 17:09 | ED.GENADULT ---
HPI - General Adult General Chief complaint: Skin/Abscess/Foreign Body Stated complaint: jaw discoloration Source: patient, RN notes reviewed and old records reviewed Mode of arrival: ambulatory Limitations: no limitations History of Present Illness HPI narrative: 72-year-old female presents to [facility] with complaint of bruising to right lower lip and face. Patient states started as a small bump at the right corner of the mouth Tuesday. Patient states this got worse every day patient states has bruising on the inside of the mouth Now also. Patient denies injury patient denies dental pain. Patient takes baby aspirin daily and Xarelto. complaint: bruising Onset (ago): day(s) (4) Related Data Home Medications Medication Instructions Recorded Confirmed amiodarone 200 mg tablet 200 mg PO DAILY 04/22/22 01/20/23 levothyroxine 100 mcg tablet 100 mcg PO DAILY 04/22/22 01/20/23 (Levo-T) metoprolol succinate 50 mg 50 mg PO DAILY 04/22/22 01/20/23 tablet,extended release 24 hr multivitamin 1 tablet PO DAILY 04/22/22 01/20/23 oxycodone-acetaminophen 5 mg-325 1 tablet PO Q6H PRN Pain 04/22/22 01/20/23 mg tablet risperidone 0.5 mg tablet 0.5 mg PO DAILY 04/22/22 01/20/23 rivaroxaban 20 mg tablet (Xarelto) 20 mg PO DAILY 04/22/22 01/20/23 simvastatin 20 mg tablet 20 mg PO DAILY 04/22/22 01/20/23 trazodone 50 mg tablet 50 mg PO QHS 04/22/22 01/20/23 Vitamin D3 10,000 unit PO DAILY 05/19/22 01/20/23 aspirin 81 mg tablet,delayed 81 mg PO DAILY 05/19/22 01/20/23 release (Adult Low Dose Aspirin) calcium 1,200 mg PO BID 05/19/22 01/20/23 Allergies Allergy/AdvReac Type Severity Reaction Status Date / Time adhesive Allergy Intermediate PEELS MY Verified 07/08/22 10:17 SKIN OFF Review of Systems Constitutional: Constitutional: Reports no additional constitutional complaints, Denies body ache(s), Denies chills, Denies fatigue, Denies fever(s) and Denies headache(s) Eyes: Eyes: Reports no additional eye complaints and Denies blurry vision ENT: Reports system reviewed and no additional complaints, except as documented, Denies vertigo, Denies dizziness, Denies ear discharge, Denies otalgia, Denies facial pain, Denies headache(s), Denies nasal congestion, Denies nasal discharge, Denies sinus pain, Denies sinus pressure and Denies sore throat Comments: Discoloration lower lip Cardiovascular: Cardiovascular: Reports no additional cardiovascular complaints, Denies chest pain, Denies chest pain at rest, Denies rapid heart rate and Denies dyspnea Respiratory: Respiratory: Reports no additional respiratory complaints, Denies chest congestion, Denies cough, Denies pain on inspiration, Denies pain with cough and Denies dyspnea Gastrointestinal: Gastrointestinal: Denies abdominal pain, Denies diarrhea, Denies nausea and Denies vomiting Integumentary/Breasts: Skin/Breast: Reports change in pigmentation, Denies rash and Reports unusual bruising Neurologic: Reports system reviewed and no additional complaints, except as documented, Denies vertigo, Denies dizziness and Denies headache(s) Endocrine: Endocrine: Denies fatigue [facility] Past Medical History Medical History Afib Anxiety CAD (coronary artery disease) CHF (congestive heart failure) COPD (chronic obstructive pulmonary disease) Depression Emphysema lung Epigastric pain Heart attack Hernia High blood pressure History of blood clots Kidney stone Nausea Osteoarthritis Thyroid activity decreased Surgical History Surgical History H/O: hysterectomy Hx laparoscopic cholecystectomy 06/17/22 Hx of CABG Family History Family History Mother Carcinoma of colon Other Carcinoma of colon Social History Social History Smoking packs per
== END 2023-01-20 17:33 | disposition short-term general hospital (02) ==
LOC: EXPTROY 16:55
PROVIDERS: Emergency Provider Registered Nurse; PCP Nurse Practitioner Family
DX: S00.531A Contusion of lip, initial encounter (principal); S00.83XA Contusion of other part of head, initial encounter; I48.91 Unspecified atrial fibrillation; I25.10 Atherosclerotic heart disease of native coronary artery without angina pectoris; I50.9 Heart failure, unspecified; J43.9 Emphysema, unspecified; Z79.899 Other long term (current) drug therapy; Z79.01 Long term (current) use of anticoagulants; Z87.891 Personal history of nicotine dependence; X58.XXXA Exposure to other specified factors, initial encounter
CPT/HCPCS: 99212; G0463

== ENCOUNTER 2023-01-20 18:06 | Emergency (ER) | payer MEDICARE, SELFPAY ==
[2023-01-20 18:08] VITALS: BP 164/93; PULSE 87; RESP 18; TEMP 36; O2SAT 100
--- NOTE | 2023-01-20 19:55 | ED.SKABFB ---
HPI - Skin/Abscess/Foreign Bdy General Chief complaint: Skin/Abscess/Foreign Body Stated complaint: fall Time Seen by Provider: 01/20/23 19:24 History of Present Illness HPI narrative: 72 y/o F With history of CHF, COPD, CAD who is chronically anticoagulated for AFib on Xarelto reports for evaluation for bruising to her right lower lip inner cheek x3 days. Patient states 3 days ago, she woke up with a small bruise to her right lower her lip which has progressively worsened. She reports tenderness to her inner cheek with a tender nodule. She denies any injury or trauma. [employer] dental pain. 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 Related Data Home Medications Medication Instructions Recorded Confirmed amiodarone 200 mg tablet 200 mg PO DAILY 04/22/22 01/20/23 levothyroxine 100 mcg tablet 100 mcg PO DAILY 04/22/22 01/20/23 (Levo-T) metoprolol succinate 50 mg 50 mg PO DAILY 04/22/22 01/20/23 tablet,extended release 24 hr multivitamin 1 tablet PO DAILY 04/22/22 01/20/23 oxycodone-acetaminophen 5 mg-325 1 tablet PO Q6H PRN Pain 04/22/22 01/20/23 mg tablet risperidone 0.5 mg tablet 0.5 mg PO DAILY 04/22/22 01/20/23 rivaroxaban 20 mg tablet (Xarelto) 20 mg PO DAILY 04/22/22 01/20/23 simvastatin 20 mg tablet 20 mg PO DAILY 04/22/22 01/20/23 trazodone 50 mg tablet 50 mg PO QHS 04/22/22 01/20/23 Vitamin D3 10,000 unit PO DAILY 05/19/22 01/20/23 aspirin 81 mg tablet,delayed 81 mg PO DAILY 05/19/22 01/20/23 release (Adult Low Dose Aspirin) calcium 1,200 mg PO BID 05/19/22 01/20/23 Allergies Allergy/AdvReac Type Severity Reaction Status Date / Time adhesive Allergy Intermediate PEELS MY Verified 07/08/22 10:17 SKIN OFF Review of Systems Review of Systems: CONSTITUTIONAL: Denies fever, chills, or sweats. EYES: Denies visual changes, redness, or discharge. ENT: Denies rhinorrhea, congestion, sore throat, or otalgia. CARDIOVASCULAR: Denies chest pain, palpitations, or edema. RESPIRATORY: Denies cough or dyspnea. GASTROINTESTINAL: Denies abdominal pain, nausea, vomiting, or diarrhea. GENITOURINARY: Denies dysuria or hematuria. SKIN: See HPI MUSCULOSKELETAL: Denies back pain, joint pain, or myalgia. NEUROLOGIC: Denies headache, numbness, or weakness. PSYCHIATRIC: Denies anxiety or depression. [facility] Past Medical History Medical History Afib Anxiety CAD (coronary artery disease) CHF (congestive heart failure) COPD (chronic obstructive pulmonary disease) Depression Emphysema lung Epigastric pain Heart attack Hernia High blood pressure History of blood clots Kidney stone Nausea Osteoarthritis Thyroid activity decreased Surgical History Surgical History H/O: hysterectomy Hx laparoscopic cholecystectomy 06/17/22 Hx of CABG Family History Family History Mother Carcinoma of colon Other Carcinoma of colon Social History Social History Smoking packs per day: 1 Smoking cigarettes per day: 20.0 Years smoked: 40 Smoking pack-years: 40.00 Smoking status: Former smoker Tobacco type: cigarettes and e-cigarettes/vaping Additional smoking assessment comments: STATES QUIT SMOKING 2018 AND THEN STARTED VAPING Alcohol intake: current Alcohol use details: RARELY - COUPLE TIMES A YEAR Substance use: never Substance use type: does not use Living arrangements: assisted living Additional living arrangements comments: [facility] Spiritual care concerns: No Exam Narrative: GENERAL: Well-appearing, well-nourished, and in no acute distress. HEAD: Normocephalic, atraumatic. EYES: PERRLA and EOMI. ENT: Nares clear, no rhinorrhea or epistaxis. Mucous membranes moist. posterior pharynx without Erythema or petechiae. No tonsillar h
[2023-01-20 20:01] VITALS: BP 127/95; PULSE 72; RESP 16; O2SAT 98
[2023-01-20 20:57] LABS: Basophils Absolute Auto 0.1 K/mm3 (0.0-0.1); Basophils Percent Auto 1.2 % (0.2-1.2); Eosinophils Absolute Auto 0.1 K/mm3 (0-0.3); Eosinophils Percent Auto 1.8 % (0-4.4); Hematocrit 40.7 % (37.0-47.0); Hemoglobin 12.7 g/dL (12.0-15.0); Immature Granulocyte Absolute 0.06 K/mm3 (0.00-0.031); Immature Granulocyte Percent A 0.8 % (0-0.5); Lymphocytes Absolute Auto 1.31 K/mm3 (0.9-3.2); Lymphocytes Percent Auto 17.3 % (18.3-44.2); Mean Corpuscular HGB Conc 31.2 g/dl (32-36); Mean Corpuscular Hemoglobin 31.8 pg (26-34); Mean Platelet Volume 10.6 fl (7.4-10.4); Monocytes Absolute Auto 0.7 K/mm3 (0.1-0.6); Monocytes Percent Auto 9.5 % (2.6-8.5); Neutrophils Absolute Auto 5.3 K/mm3 (1.3-6.7); Neutrophils Percent Auto 69.4 % (45.5-73.1); Platelet Count Result 285 k/mm3 (150-375); Red Blood Count 3.99 M/mm3 (4.2-5.4); Red Cell Distribution Width 13.8 % (11.5-14.5); White Blood Count 7.6 K/mm3 (4.5-10.0)
[2023-01-20 21:07] LABS: INR 1.4; Prothrombin Time 17.8 Seconds (11.1-14.7)
[2023-01-20 22:26] VITALS: BP 151/98; PULSE 73; RESP 16; O2SAT 99
== END 2023-01-20 22:27 | disposition home or self-care (01) ==
PROVIDERS: Emergency Provider Physician Assistant; PCP Nurse Practitioner Family
DX: R23.3 Spontaneous ecchymoses (principal); I50.9 Heart failure, unspecified; I25.10 Atherosclerotic heart disease of native coronary artery without angina pectoris; I48.91 Unspecified atrial fibrillation; I25.2 Old myocardial infarction; J43.9 Emphysema, unspecified; M19.90 Unspecified osteoarthritis, unspecified site; F17.290 Nicotine dependence, other tobacco product, uncomplicated; Z95.1 Presence of aortocoronary bypass graft; Z87.442 Personal history of urinary calculi; Z90.49 Acquired absence of other specified parts of digestive tract; Z90.710 Acquired absence of both cervix and uterus; Z79.01 Long term (current) use of anticoagulants; Z79.82 Long term (current) use of aspirin
CPT/HCPCS: 36415; 85025; 85610; 85730; 95863; 99283

== ENCOUNTER 2023-11-30 05:26 | Day surgery (SDC) | payer MEDICARE, SELFPAY ==
[2023-11-18 16:14] VITALS: BMI 26.3
--- NOTE | 2023-11-23 08:52 | PC.NURSE ---
pt is on xarelto and sees dr ryan [phone]. request to hold sent via fax, called office to followup, has been oot since last week. will return tomorrow and nurse will submit requset to him at that time. will send it back on nov 24.
--- NOTE | 2023-11-28 09:17 | PC.NURSE ---
Patient called regarding medication XARELTO, voicemail received with message let for last dose to be taken 11/26/2023 and then to hold till after procedure. Patient called back and left message on my voicemail verbalizes understanding that the last dose of XARELTO is to be taken on 11/26/2023 and the Endoscopist will instruct them when to restart after the procedure.
[2023-11-30 09:35] VITALS: BP 118/62; PULSE 78; RESP 20; TEMP 35.8; O2SAT 96; BMI 26.7
[2023-11-30] MEDS: LACTATED RINGERS 1,000 ML 150 ML IV CONT (09:48)
--- NOTE | 2023-11-30 11:20 | WPDANESEPPF ---
Anes - Initial Pre Proc Eval Procedure: Operation Date: 11/30/23 10:30 Proposed Procedures p Colonoscopy - Kevin Ross MD Date/Time: 11/30/23 11:20 Surgeon: Kevin Ross MD Pre Op Diagnosis: screening colon Patient Data Age: 73 Gender: F Height: 1.68 m Weight: 75.1 kg Last Vital Signs Temp 96.4 F L 11/30/23 09:35 Pulse 78 11/30/23 09:35 Resp 20 11/30/23 09:35 BP 118/62 11/30/23 09:35 Pulse Ox 96 11/30/23 09:35 O2 Del Method Room Air 11/30/23 09:35 Allergies Allergy/AdvReac Type Severity Reaction Status Date / Time adhesive Allergy Intermediate PEELS MY Verified 11/30/23 09:31 SKIN OFF Home Medications Medication Instructions Recorded Confirmed Type amiodarone 200 mg tablet 200 mg PO DAILY 04/22/22 11/30/23 History metoprolol succinate 50 mg 25 mg PO DAILY 04/22/22 11/30/23 History tablet,extended release 24 hr multivitamin 1 tablet PO DAILY 04/22/22 11/30/23 History oxycodone-acetaminophen 5 mg-325 1 tablet PO Q6H PRN Pain 04/22/22 11/30/23 History mg tablet rivaroxaban 20 mg tablet (Xarelto) 20 mg PO DAILY 04/22/22 11/30/23 History simvastatin 20 mg tablet 20 mg PO DAILY 04/22/22 11/30/23 History trazodone 50 mg tablet 50 mg PO QHS 04/22/22 11/30/23 History Vitamin D3 10,000 unit PO DAILY 05/19/22 11/30/23 History aspirin 81 mg tablet,delayed 81 mg PO DAILY 05/19/22 11/30/23 History release (Adult Low Dose Aspirin) calcium 1,200 mg PO BID 05/19/22 11/30/23 History albuterol sulfate 90 mcg/actuation 2 puff inhalation DIRECTED PRN 11/21/23 11/30/23 History aerosol inhaler Shortness Of Breath Or Wheezing Patient hx anesthesia problems: none Family hx anesthesia problems: none Results Review: All pre-operative results and documents have been reviewed as part of the pre-operative evaluation. [facility] Past Medical History Medical History Afib Anxiety CAD (coronary artery disease) CHF (congestive heart failure) COPD (chronic obstructive pulmonary disease) Depression Emphysema lung Epigastric pain Heart attack Hernia High blood pressure History of blood clots Kidney stone Nausea Osteoarthritis Thyroid activity decreased Surgical History Surgical History H/O: hysterectomy Hx laparoscopic cholecystectomy 06/17/22 Hx of CABG Family History Family History Mother Carcinoma of colon Other Carcinoma of colon Social History Social History Smoking packs per day: 1 Smoking cigarettes per day: 20.0 Years smoked: 40 Smoking pack-years: 40.00 Smoking status: Former smoker Tobacco type: e-cigarettes/vaping Additional smoking assessment comments: quit smoking 2yrs ago. quit vaping 6 months ago Alcohol intake: current Alcohol use details: 1-2 per month Substance use: never Substance use type: does not use Living arrangements: [facility] Additional living arrangements comments: [facility] Spiritual care concerns: No Anes - Eval Final PreProcedure Day of Procedure 11/30/23 11:20 Patient weight: overweight Heart: regular rate and rhythm Lungs: clear to auscultation Airway: Mallampati scale and special considerations (Missing many teeth, none loose. ) Neurological: alert and oriented Last oral intake: >/= 8 hours ASA classification: IV Emergent: no Anesthetic plan: proceed Anesthesia type and monitoring: general GIVS and standard monitoring Results Review: All pre-operative results and documents have been reviewed as part of the pre-operative evaluation. HTN, TEJ not currently on CPAP, PTCA x2 in the past, pafib, hyperlipidemia. Stress test 2022 nml LVEF. DNR w goal specific resc efforts signed and witnessed. Informed Consent: The patient's an
--- NOTE | 2023-11-30 11:30 | PM.IMHP ---
H&P: HPI History of Present Illness Date/Time: 11/30/23 11:30 Chief Complaint: History of colon polyps Narrative: The patient has a history of colonic polyps, the last colonoscopy was more than 5 years ago. She is asymptomatic. Review of Systems Review of Systems: All systems reviewed & are unremarkable except as noted in HPI and below PMFSH Past Medical History Medical History Afib Anxiety CAD (coronary artery disease) CHF (congestive heart failure) COPD (chronic obstructive pulmonary disease) Depression Emphysema lung Epigastric pain Heart attack Hernia High blood pressure History of blood clots Kidney stone Nausea Osteoarthritis Thyroid activity decreased Surgical History Surgical History H/O: hysterectomy Hx laparoscopic cholecystectomy 06/17/22 Hx of CABG Family History Family History Mother Carcinoma of colon Other Carcinoma of colon Social History Social History Smoking packs per day: 1 Smoking cigarettes per day: 20.0 Years smoked: 40 Smoking pack-years: 40.00 Smoking status: Former smoker Tobacco type: e-cigarettes/vaping Additional smoking assessment comments: quit smoking 2yrs ago. quit vaping 6 months ago Alcohol intake: current Alcohol use details: 1-2 per month Substance use: never Substance use type: does not use [facility] Additional living arrangements comments: [facility] Spiritual care concerns: No Meds Home Medications and Allergies Home Medications Medication Instructions Recorded Confirmed Type amiodarone 200 mg tablet 200 mg PO DAILY 04/22/22 11/30/23 History metoprolol succinate 50 mg 25 mg PO DAILY 04/22/22 11/30/23 History tablet,extended release 24 hr multivitamin 1 tablet PO DAILY 04/22/22 11/30/23 History oxycodone-acetaminophen 5 mg-325 1 tablet PO Q6H PRN Pain 04/22/22 11/30/23 History mg tablet rivaroxaban 20 mg tablet (Xarelto) 20 mg PO DAILY 04/22/22 11/30/23 History simvastatin 20 mg tablet 20 mg PO DAILY 04/22/22 11/30/23 History trazodone 50 mg tablet 50 mg PO QHS 04/22/22 11/30/23 History Vitamin D3 10,000 unit PO DAILY 05/19/22 11/30/23 History aspirin 81 mg tablet,delayed 81 mg PO DAILY 05/19/22 11/30/23 History release (Adult Low Dose Aspirin) calcium 1,200 mg PO BID 05/19/22 11/30/23 History albuterol sulfate 90 mcg/actuation 2 puff inhalation DIRECTED PRN 11/21/23 11/30/23 History aerosol inhaler Shortness Of Breath Or Wheezing Allergies Allergy/AdvReac Type Severity Reaction Status Date / Time adhesive Allergy Intermediate PEELS MY Verified 11/30/23 09:31 SKIN OFF Vital Signs Vital Signs - 24 hr 11/30/23 09:35 Temperature 96.4 F L Pulse Rate 78 Respiratory Rate 20 Blood Pressure 118/62 Pulse Oximetry 96 Oxygen Delivery Room Air Assessment and Plan Assessment and plan (1) History of colonic polyps: Code(s): Z86.0100 - Personal history of colon polyps, unspecified Status: Acute Assessment and Plan: The patient is deemed a good candidate for the procedure. Consent signed. Will proceed.
[2023-11-30 12:06] VITALS: BP 109/58; PULSE 73; RESP 12; O2SAT 94
[2023-11-30 12:16] VITALS: BP 112/53; PULSE 85; RESP 18; O2SAT 93
[2023-11-30 12:26] VITALS: BP 125/71; PULSE 76; RESP 20; O2SAT 76
== END 2023-11-30 13:00 | disposition home or self-care (01) ==
PROVIDERS: PCP Family Medicine; Visit Provider Internal Medicine Gastroenterology
PROC: 0DJD8ZZ Inspection of Lower Intestinal Tract, Via Natural or Artificial Opening Endoscopic (ICD-10-PCS; CPT 45378; principal; 2023-11-30 10:30)
DX: Z12.11 Encounter for screening for malignant neoplasm of colon (principal); K57.30 Diverticulosis of large intestine without perforation or abscess without bleeding; I25.10 Atherosclerotic heart disease of native coronary artery without angina pectoris; I48.91 Unspecified atrial fibrillation; I11.0 Hypertensive heart disease with heart failure; I50.9 Heart failure, unspecified; J43.9 Emphysema, unspecified; I25.2 Old myocardial infarction; F32.A Depression, unspecified; F41.9 Anxiety disorder, unspecified; Z79.891 Long term (current) use of opiate analgesic; Z79.01 Long term (current) use of anticoagulants; Z79.82 Long term (current) use of aspirin; Z79.51 Long term (current) use of inhaled steroids; Z98.890 Other specified postprocedural states; Z90.49 Acquired absence of other specified parts of digestive tract; Z95.1 Presence of aortocoronary bypass graft; Z87.891 Personal history of nicotine dependence; Z86.0100 Personal history of colon polyps, unspecified; Z87.442 Personal history of urinary calculi; Z80.0 Family history of malignant neoplasm of digestive organs
CPT/HCPCS: G0105; J2003; J2371; J2704; J7120

== ENCOUNTER 2024-09-24 10:21 | Outpatient (CLI) | payer MEDICARE, SELFPAY ==
--- NOTE | ~2024-09-24 | MR_ITS ---
MRI of the lumbar spine Clinical History: Back pain Technique: Axial T2-weighted images, and sagittal T1-weighted, T2-weighted, and and T2 fat-sat images were acquired. Findings: No acute fracture identified. There is 4 mm anterolisthesis of L4 over L5. There is 2 mm re trolisthesis of L5 over S1. No suspicious bone marrow signal abnormality seen. At L1-L2, there is no disc bulge or herniation. There is mild to moderate facet hypertrophy. No spina l canal stenosis or neural foraminal narrowing. At L2-L3, there is mild disc bulge with mild facet arthropathy. No central canal stenosis or neural f oraminal narrowing. At L3-L4, there is disc bulge with moderate facet arthropathy. There is mild central canal stenosis. There is mild bilateral neural foraminal narrowing. At L4-L5, there is degenerative distended with disc bulge and advanced facet arthropathy. No central canal stenosis. Neural foramina are preserved. At L5-S1, there is severe degenerative disc narrowing. There is disc bulge and severe facet arthropat hy and probable left hemilaminectomy. No central canal stenosis. There is severe right neural foramin al narrowing, and moderate left neural foraminal narrowing. Paravertebral soft tissues are unremarkable. Impression: Moderate degenerative spondylosis overall, as detailed above, worst at L5-S1. Reviewed, dictated and finalized at [facility]. Impression: Moderate degenerative spondylosis overall, as detailed above, worst at L5-S1.
--- NOTE | ~2024-09-24 | MR_ITS ---
MRI of the thoracic spine Clinical History: Back pain Technique: Axial T2-weighted and gradient images, and sagittal T1-weighted, T2-weighted, and STIR mattie ges were acquired. Findings: No acute fracture or subluxation seen. Possible minimal chronic wedging deformities of T7, T8, and T9. No suspicious bone marrow signal abnormality seen. There is moderate degenerative disc narrowing from T7 through T11. No significant disc bulge or herni ation seen. No spinal canal stenosis or cord compression identified. There is moderate bilateral neur al foraminal narrowing from T7 through T10. Paravertebral soft tissues are unremarkable. Impression: Moderate degenerative change at T7-T10, as above. Possible minimal chronic wedging deformities of T7, T8, and T9. Reviewed, dictated and finalized at location . Impression: Moderate degenerative change at T7-T10, as above. Possible minimal chronic wedging deformities of T7, T8, and T9.
== END 2024-09-24 10:22 | disposition home or self-care (01) ==
LOC: MICIMG 10:25
PROVIDERS: PCP Family Medicine; Visit Provider Nurse Practitioner Gerontology
DX: M51.24 Other intervertebral disc displacement, thoracic region (principal); M47.896 Other spondylosis, lumbar region
CPT/HCPCS: 72146; 72148

== ENCOUNTER 2024-12-18 12:36 | Outpatient (CLI) | payer MEDICARE, SELFPAY ==
--- NOTE | ~2024-12-18 | MM_ITS ---
EXAMINATION: MM screening anum BI w hima HISTORY: Screening TECHNIQUE: Craniocaudal and mediolateral oblique 3-D tomosynthesis images were obtained and synthetic 2-D images were generated. CAD analysis was submitted and interpreted. COMPARISON: 11/01/2022 BREAST PARENCHYMAL COMPOSITION: Not dense: There are scattered areas of fibroglandular density. FINDINGS: There is no evidence of suspicious mass, calcification, or architectural distortion to suggest malignancy in either breast. There has been no suspicious interval change. IMPRESSION: 1. No mammographic evidence of malignancy. 2. Recommend routine screening mammography in one year. BI-RADS Category 1: Negative Reviewed, dictated and finalized at location [facility]. [facility]
== END 2024-12-18 12:37 | disposition home or self-care (01) ==
LOC: MICIMG 12:36
PROVIDERS: PCP Family Medicine; Visit Provider Family Medicine
DX: Z12.31 Encounter for screening mammogram for malignant neoplasm of breast (principal)
CPT/HCPCS: 77063; 77067